=== PATIENT | female | born 1945 | race Caucasian/White ===

== ENCOUNTER → 2024-02-14 06:25 | Day surgery (SDC) | payer MEDICARE, SELFPAY | LOC: GI 06:25 | PROVIDERS: ATTENDING PHYSICIAN Internal Medicine Gastroenterology | DX: Z12.11 Encounter for screening for malignant neoplasm of colon (principal); K57.30 Diverticulosis of large intestine without perforation or abscess without bleeding; K64.8 Other hemorrhoids; D12.0 Benign neoplasm of cecum | CPT/HCPCS: 45385; 88305 ==